=== PATIENT | female | born 1950 | race Caucasian/White ===

== ENCOUNTER 2018-04-03 11:43 | Inpatient (IN) | payer MEDICARE ==
[~2018-04-03] VITALS: Ht 157.5 cm; Wt 81.3 kg
--- NOTE | 2018-04-03 12:42 | NUR ---
PT STILL IN RADIOLOGY
--- NOTE | 2018-04-03 12:59 | NUR ---
PT REPORT TO JAM PEREZ. PT CARE TRANSFERRED.
--- NOTE | 2018-04-03 13:00 | NUR ---
report from julito, assumed care of pt
[2018-04-03 13:21] LABS: ALBUMIN 3.2 g/dL (3.4-5.0); ANION GAP 6 mmol/L (5-15); CALCIUM 8.5 mg/dL (8.5-10.1); CHLORIDE 99 mmol/L (98-107); CREATININE 0.67 mg/dL (0.55-1.02)
[2018-04-03 13:27] LABS: INTERNATIONAL NORMALIZED RATIO 1.02 (0.93-1.1); PROTHROMBIN TIME 10.8 Seconds (9.6-11.5)
[2018-04-03 13:36] LABS: MEAN CORPUSCULAR HEMOGLOBIN 29.3 pg (27.0-34.8); MEAN CORPUSCULAR HGB CONC 33.2 g/dL (32.4-35.8); MEAN CORPUSCULAR VOLUME 88.3 fL (80-100); MEAN PLATELET VOLUME 8.1 fL (7.4-10.4); PLATELET COUNT 241 x10^3/uL (130-400); RED BLOOD COUNT 3.64 x10^6/uL (3.82-5.3); RED CELL DISTRIBUTION WIDTH 15.9 % (9.6-15.2)
[2018-04-03 13:37] LABS: HEMOGRAM NOTE RECHECKED
[2018-04-03 13:38] LABS: MD YES
[2018-04-03 13:41] LABS: BAND#(MANUAL) 0.05 x10^3/uL; BANDS%(MANUAL) 3 % (0-7); LYMPH#(MANUAL) 0.36 x10^3/uL (1-3.4); LYMPHS% (MANUAL) 24 % (22-44); MONOS#(MANUAL) 0.12 x10^3/uL (0.3-2.7); MONOS% (MANUAL) 8 % (2-9); SEG#(MANUAL) 0.98 x10^3/uL (1.8-6.8); SEGS% (MANUAL) 65 % (42-75)
[2018-04-03 13:42] LABS: <PLATELET ESTIMATE> ADEQUATE; <PLT MORPHOLOGY> NORMAL PLT MORPH; <RBC MORPHOLOGY> NORMAL
--- NOTE | 2018-04-03 13:42 | NUR ---
TASK RN: CRITICAL VALUE REPORTED FROM LAB, WBC 1.5. ERP AND PRIMARY RN NOTIFIED OF PT CONDITION.
--- NOTE | 2018-04-03 13:44 | NUR ---
per md lentz to start heparin after pt returns of cta exam.
--- NOTE | 2018-04-03 13:45 | NUR ---
pt resting in room with family at bedside. pt placed on monitor and awaiting cta exam
[2018-04-03] MEDS ORDERED: HEPARIN 5,000 UNITS/ML, 1ML IV ONE (14:00)
[2018-04-03] MEDS ORDERED: OMNIPAQUE 350 MG/ML, 100ML BOTTLE ONE (14:30)
[2018-04-03] MEDS ORDERED: HEPARIN 5,000 UNITS/ML, 1ML ONE (14:45)
[2018-04-03] MEDS ORDERED: HEPARIN 25,000 UNITS/500ML PMX 500 ML ONE (14:45)
[2018-04-03] MEDS: HEPARIN 25,000 UNITS/500ML PMX 500 ML IV PRN (14:52)
[2018-04-03] MEDS ORDERED: OMEP-110 PO (14:56)
[2018-04-03] MEDS ORDERED: AMLO10TA6 PO (14:56)
[2018-04-03] MEDS ORDERED: HYDR25TA6 PO (14:56)
[2018-04-03] MEDS ORDERED: ATOR20TA PO (14:56)
--- NOTE | 2018-04-03 14:57 | NUR ---
bedside report to
--- NOTE | 2018-04-03 14:59 | NUR ---
BEDSIDE REPORT RECEIVED FROM JAM RAHMAN. PT SITTING UP IN [facility], AWAKE/ALERT, NAD NOTED. ERP AT BEDSIDE TO DISCUSS POC (ADMIT) AND DEMONSTRATES UNDERSTANDING. HEPARIN INITIATED AND REPEAT ANTI-XA ORDERED. BP/SPO2/ECG MONITORING IN PLACE. NSR ON MONITOR. SON AT BEDSIDE REVERSE ISO PRECAUTIONS IN PLACE.
[2018-04-03] MEDS ORDERED: SODIUM CHLORIDE FLUSH 10ML SYR IVF PRN (15:30)
[2018-04-03] MEDS ORDERED: ONDANSETRON ODT 4 MG PO PRN (16:00)
[2018-04-03] MEDS ORDERED: ONDANSETRON 2MG/ML, 2ML IVPush PRN (16:00)
[2018-04-03] MEDS ORDERED: POTASSIUM CHLORIDE 20 MEQ TAB.ER.PRT PO ONE (16:00)
[2018-04-03] MEDS ORDERED: AMLO-150 PO (16:18)
[2018-04-03 16:30] VITALS: BP 154/80
[2018-04-03 19:30] VITALS: BP 156/79
[2018-04-03] MEDS: ATORVASTATIN 20 MG TABLET PO SCH (21:32)
[2018-04-03] MEDS: HEPARIN 5,000 UNITS/ML, 1ML IV PRN (21:56)
[2018-04-03] MEDS: ACETAMINOPHEN 325 MG TABLET PO PRN (21:56)
[2018-04-04 02:48] VITALS: BP 129/76
[2018-04-04 04:40] LABS: MEAN CORPUSCULAR HEMOGLOBIN 30.5 pg (27.0-34.8); MEAN CORPUSCULAR HGB CONC 34.2 g/dL (32.4-35.8); MEAN CORPUSCULAR VOLUME 89.2 fL (80-100); MEAN PLATELET VOLUME 8.3 fL (7.4-10.4); PLATELET COUNT 233 x10^3/uL (130-400); RED BLOOD COUNT 3.76 x10^6/uL (3.82-5.3); RED CELL DISTRIBUTION WIDTH 15.7 % (9.6-15.2)
[2018-04-04 04:41] LABS: ALANINE AMINOTRANSFERASE 16 U/L (12-78); ALBUMIN 3.2 g/dL (3.4-5.0); ANION GAP 6 mmol/L (5-15); CALCIUM 8.2 mg/dL (8.5-10.1); CHLORIDE 101 mmol/L (98-107); CREATININE 0.55 mg/dL (0.55-1.02)
[2018-04-04 04:43] LABS: ALKALINE PHOSPHATASE 113 U/L (45-117); BILIRUBIN,TOTAL 0.7 mg/dL (0.2-1.0); TOTAL PROTEIN 6.5 g/dL (6.4-8.2)
[2018-04-04] MEDS: HEPARIN 5,000 UNITS/ML, 1ML IV PRN ×3 (04:57→19:21)
[2018-04-04] MEDS: ACETAMINOPHEN 325 MG TABLET PO PRN (05:02)
[2018-04-04 05:08] LABS: BASOPHILS # (AUTO) 0.06 x10^3/uL (0-0.1); BASOPHILS % (AUTO) 6 % (0-1); EOSINOPHILS # (AUTO) 0.03 x10^3/uL (0-0.4); EOSINOPHILS % (AUTO) 2 % (1-7); LYMPHOCYTES # (AUTO) 0.35 x10^3/uL (1-3.4); LYMPHOCYTES % (AUTO) 32 % (22-44); MD SCAN; MONOCYTES # (AUTO) 0.09 x10^3/uL (0.2-0.8); MONOCYTES % (AUTO) 9 % (2-9); NEUTROPHILS # (AUTO) 0.54 x10^3/uL (1.8-6.8); NEUTROPHILS % (AUTO) 51 % (42-75)
[2018-04-04 07:52] VITALS: BP 127/75
[2018-04-04] MEDS: OMEPRAZOLE 20 MG CAPSULE.DR PO SCH (09:45)
[2018-04-04] MEDS: AMLODIPINE 5 MG TABLET PO SCH (09:45)
[2018-04-04 16:03] VITALS: BP 129/72
[2018-04-04] MEDS: HEPARIN 25,000 UNITS/500ML PMX 500 ML IV PRN (17:43)
[2018-04-04 20:38] VITALS: BP 146/76
[2018-04-04 20:40] VITALS: BP 126/72
[2018-04-04] MEDS: ATORVASTATIN 20 MG TABLET PO SCH (21:04)
[2018-04-05 01:31] LABS: ANION GAP 4 mmol/L (5-15); CALCIUM 8.3 mg/dL (8.5-10.1); CHLORIDE 101 mmol/L (98-107); CREATININE 0.55 mg/dL (0.55-1.02)
[2018-04-05 01:53] LABS: MEAN CORPUSCULAR HEMOGLOBIN 30.6 pg (27.0-34.8); MEAN CORPUSCULAR HGB CONC 34.6 g/dL (32.4-35.8); MEAN CORPUSCULAR VOLUME 88.4 fL (80-100); MEAN PLATELET VOLUME 8.2 fL (7.4-10.4); PLATELET COUNT 213 x10^3/uL (130-400); RED BLOOD COUNT 3.54 x10^6/uL (3.82-5.3); RED CELL DISTRIBUTION WIDTH 15.4 % (9.6-15.2)
[2018-04-05] MEDS: HEPARIN 5,000 UNITS/ML, 1ML IV PRN (02:35)
[2018-04-05 02:37] LABS: BASOPHILS # (AUTO) 0.07 x10^3/uL (0-0.1); BASOPHILS % (AUTO) 6 % (0-1); EOSINOPHILS # (AUTO) 0.04 x10^3/uL (0-0.4); EOSINOPHILS % (AUTO) 3 % (1-7); LYMPHOCYTES # (AUTO) 0.47 x10^3/uL (1-3.4); LYMPHOCYTES % (AUTO) 39 % (22-44); MD SCAN; MONOCYTES # (AUTO) 0.21 x10^3/uL (0.2-0.8); MONOCYTES % (AUTO) 17 % (2-9); NEUTROPHILS # (AUTO) 0.43 x10^3/uL (1.8-6.8); NEUTROPHILS % (AUTO) 36 % (42-75)
[2018-04-05 02:43] VITALS: BP 127/73
[2018-04-05] MEDS: ACETAMINOPHEN 325 MG TABLET PO PRN ×2 (02:43→20:16)
[2018-04-05 06:38] VITALS: BP 124/69
[2018-04-05] MEDS: OMEPRAZOLE 20 MG CAPSULE.DR PO SCH (09:32)
[2018-04-05] MEDS: AMLODIPINE 5 MG TABLET PO SCH (09:32)
[2018-04-05 14:00] VITALS: BP 143/76
[2018-04-05] MEDS: APIXABAN 5 MG TABLET PO SCH ×2 (15:47→20:16)
[2018-04-05 19:44] VITALS: BP 145/75
[2018-04-05] MEDS: ATORVASTATIN 20 MG TABLET PO SCH (20:16)
[2018-04-06] MEDS: ACETAMINOPHEN 325 MG TABLET PO PRN (03:19)
[2018-04-06 03:36] VITALS: BP 131/77
[2018-04-06 07:55] VITALS: BP 157/80
[2018-04-06] MEDS: OMEPRAZOLE 20 MG CAPSULE.DR PO SCH (07:56)
[2018-04-06] MEDS: APIXABAN 5 MG TABLET PO SCH (07:56)
[2018-04-06] MEDS: AMLODIPINE 5 MG TABLET PO SCH (07:56)
[2018-04-06 09:44] LABS: MEAN CORPUSCULAR HEMOGLOBIN 30.5 pg (27.0-34.8); MEAN CORPUSCULAR HGB CONC 34.1 g/dL (32.4-35.8); MEAN CORPUSCULAR VOLUME 89.4 fL (80-100); MEAN PLATELET VOLUME 8.5 fL (7.4-10.4); PLATELET COUNT 278 x10^3/uL (130-400); RED BLOOD COUNT 3.69 x10^6/uL (3.82-5.3); RED CELL DISTRIBUTION WIDTH 15.6 % (9.6-15.2)
[2018-04-06 10:36] LABS: BASOPHILS # (AUTO) 0.09 x10^3/uL (0-0.1); BASOPHILS % (AUTO) 4 % (0-1); EOSINOPHILS # (AUTO) 0.04 x10^3/uL (0-0.4); EOSINOPHILS % (AUTO) 2 % (1-7); LYMPHOCYTES # (AUTO) 0.41 x10^3/uL (1-3.4); LYMPHOCYTES % (AUTO) 19 % (22-44); MD SCAN; MONOCYTES # (AUTO) 0.42 x10^3/uL (0.2-0.8); MONOCYTES % (AUTO) 19 % (2-9); NEUTROPHILS # (AUTO) 1.22 x10^3/uL (1.8-6.8); NEUTROPHILS % (AUTO) 56 % (42-75)
[2018-04-06] MEDS ORDERED: APIX5TAB PO (11:57)
[2018-04-06] MEDS ORDERED: POTASSIUM CHLORIDE 20 MEQ TAB.ER.PRT PO ONE (12:00)
[2018-04-12] MEDS ORDERED: APIXABAN 5 MG TABLET PO SCH (09:00)
== END 2018-04-06 13:47 | disposition home or self-care (01) | DRG 300 ==
LOC: ED 13:28 → EDIP 15:17 → 3NW 16:00
PROVIDERS: ADMIT Internal Medicine; ATTEND Internal Medicine
DX: I82.A12 Acute embolism and thrombosis of left axillary vein (principal); D68.69 Other thrombophilia; Z90.710 Acquired absence of both cervix and uterus; D64.9 Anemia, unspecified; D70.9 Neutropenia, unspecified; E78.5 Hyperlipidemia, unspecified; E87.6 Hypokalemia; I10 Essential (primary) hypertension; C50.919 Malignant neoplasm of unspecified site of unspecified female breast; K21.9 Gastro-esophageal reflux disease without esophagitis; Z80.0 Family history of malignant neoplasm of digestive organs; I82.B12 Acute embolism and thrombosis of left subclavian vein; Z88.0 Allergy status to penicillin; I82.612 Acute embolism and thrombosis of superficial veins of left upper extremity
CPT/HCPCS: 36415; 71275; 80048; 80053; 82040; 83735; 84100; 85025; 85520; 85610; 85730; 93005; 96374; 99285; G0378; J1644; Q9967